=== PATIENT | male | born 1940 | race Caucasian/White ===

== ENCOUNTER 2017-11-28 05:14 | Inpatient (IN) | payer MEDICARE ==
[~2017-11-28] VITALS: Ht 177.8 cm; Wt 127.8 kg
[~2017-11-28 05:14] MED LIST: ACET-1600 PO; ASCO10004 PO; CALCIUM, MAG, ZINC PO; CHOL2000 PO; CLON2TAB2 PO; DIPH25CA61 PO; FINA5TAB4 PO; L.AC1CAP6 PO; LEVO150T5 PO; LOSA50TA6 PO; METF500T4 PO; METO-95 PO; MULT-717 PO; MULT-746 PO; OMEG1CAP34 PO; PRAV80TA2 PO; RIVA20TA PO; ST.150CA PO; STRONTIUM PO; TAMS0.4C2 PO; UBID100C24 PO; VIT1CAPS11 PO
[2017-11-28] MEDS ORDERED: VANCOMYCIN PER PHARMACY MC ONE (06:00)
[2017-11-28] MEDS ORDERED: CLINDAMYCIN 150 MG/ML, 6ML ONE (06:13)
[2017-11-28] MEDS ORDERED: cloniDINE/PF 100 MCG/ML, 10 ML ONE (06:13)
[2017-11-28] MEDS ORDERED: LIDOCAINE GEL 2%, 5ML ONE (06:18)
[2017-11-28] MEDS ORDERED: MIDAZOLAM 1 MG/ML, 2ML ONE (06:20)
[2017-11-28] MEDS ORDERED: FENTANYL PF 100 MCG/2ML ONE (06:20)
[2017-11-28] MEDS ORDERED: BUPIVACAINE/PF 0.5% ONE ×2 (06:22→07:43)
[2017-11-28] MEDS ORDERED: ASCO10004 PO (06:26)
[2017-11-28] MEDS ORDERED: TIZA4CAP PO (06:26)
[2017-11-28] MEDS ORDERED: LATA2.5D3 EACHEYE (06:26)
[2017-11-28] MEDS ORDERED: LEVO150T5 PO (06:26)
[2017-11-28] MEDS ORDERED: TAMS0.4C2 PO (06:26)
[2017-11-28] MEDS ORDERED: METO200T47 PO (06:26)
[2017-11-28] MEDS ORDERED: METF-688 PO (06:26)
[2017-11-28] MEDS ORDERED: LOSA50TA6 PO (06:26)
[2017-11-28] MEDS ORDERED: RIVA20TA PO (06:26)
[2017-11-28] MEDS ORDERED: LACT1CAP35 PO (06:26)
[2017-11-28] MEDS ORDERED: LACTATED RINGERS 1,000 ML IV SCH (06:26)
[2017-11-28] MEDS ORDERED: FINA5TAB4 PO (06:26)
[2017-11-28] MEDS ORDERED: [UNRECOGNIZED DRUG - REMARK] MC SCH (06:30)
[2017-11-28] MEDS: SODIUM CHLORIDE 0.9% 1,000 ML IV SCH ×2 (06:44→18:31)
[2017-11-28 06:56] LABS: ALANINE AMINOTRANSFERASE 39 U/L (12-78); ALBUMIN 3.8 g/dL (3.4-5.0); ANION GAP 8 mmol/L (5-15); CHLORIDE 104 mmol/L (98-107); CREATININE 1.38 mg/dL (0.7-1.3)
[2017-11-28 06:58] LABS: ALKALINE PHOSPHATASE 61 U/L (45-117); BILIRUBIN,TOTAL 0.6 mg/dL (0.2-1.0); TOTAL PROTEIN 7.6 g/dL (6.4-8.2)
[2017-11-28] MEDS ORDERED: MAGNESIUM HYDROXIDE 8%, 30ML UDC PO PRN (07:00)
[2017-11-28] MEDS ORDERED: VANCOMYCIN 2,000 MG in SODIUM CHLORIDE 0.9% 500 ML IV ONE (07:00)
[2017-11-28] MEDS ORDERED: SENNA/DOCUSATE TABLET PO PRN (07:00)
[2017-11-28] MEDS ORDERED: BISACODYL 10 MG SUPP PR PRN (07:00)
[2017-11-28] MEDS: OXYcodone/APAP 5/325MG TABLET PO SCH ×4 (07:00→23:03)
[2017-11-28] MEDS ORDERED: ONDANSETRON 2MG/ML, 2ML IV PRN (07:00)
[2017-11-28] MEDS ORDERED: FENTANYL PF 100 MCG/2ML IV PRN (07:30)
[2017-11-28] MEDS ORDERED: hydrALAzine 20 MG/ML, 1ML IV PRN (07:30)
[2017-11-28] MEDS ORDERED: HYDROmorphone 1 MG/ML, 1ML IV PRN (07:30)
[2017-11-28] MEDS ORDERED: PROMETHAZINE 25 MG/ML, 1ML IV PRN (07:30)
[2017-11-28] MEDS ORDERED: OXYcodone 5 MG/5 ML ORAL.SOL UDC PO PRN (07:30)
[2017-11-28] MEDS ORDERED: MIDAZOLAM 1 MG/ML, 2ML IV PRN (07:30)
[2017-11-28] MEDS ORDERED: ALBUTEROL/IPRATROPIUM 2.5MG/0.5MG, 3 ML NPPB PRN (07:30)
[2017-11-28] MEDS ORDERED: MEPERIDINE/PF 25MG/0.5ML IVPush PRN (07:30)
[2017-11-28] MEDS ORDERED: DIAZEPAM 5 MG/ML, 2ML IVPush PRN (07:30)
[2017-11-28] MEDS ORDERED: METOPROLOL 1 MG/ML, 5ML IV PRN (07:30)
[2017-11-28] MEDS ORDERED: ACETAMINOPHEN 325 MG TABLET PO PRN (07:30)
[2017-11-28] MEDS ORDERED: ONDANSETRON 2MG/ML, 2ML IVPush PRN (07:30)
[2017-11-28] MEDS ORDERED: SUCCINYLCHOLINE 20 MG/ML, 10ML ONE (07:43)
[2017-11-28] MEDS ORDERED: NEOSTIGMINE 1 MG/ML, 10ML ONE (07:43)
[2017-11-28] MEDS ORDERED: GLYCOPYRROLATE 0.2MG/1ML, 5ML ONE (07:43)
[2017-11-28] MEDS ORDERED: ROCURONIUM 10 MG/ML,10ML ONE (07:43)
[2017-11-28] MEDS ORDERED: LIDOCAINE-MPF 2% ,5ML ONE (07:43)
[2017-11-28] MEDS ORDERED: ONDANSETRON 2MG/ML, 2ML ONE (07:43)
[2017-11-28] MEDS ORDERED: CEFAZOLIN 1,000 MG ONE ×2 (07:43)
[2017-11-28] MEDS ORDERED: DEXAMETHASONE 4 MG/ML, 1ML ONE (07:43)
[2017-11-28] MEDS ORDERED: PROPOFOL 10 MG/ML, 20ML ONE (07:43)
[2017-11-28] MEDS ORDERED: EPHEDRINE 50 MG/ML, 1ML ONE ×2 (07:58)
[2017-11-28] MEDS ORDERED: PHENYLEPHRINE 10 MG/ML ONE (07:58)
[2017-11-28] MEDS: DOCUSATE 100 MG CAPSULE PO SCH ×2 (09:00→21:43)
[2017-11-28] MEDS ORDERED: ACETAMINOPHEN 650 MG/20.3 ML UDC ONE (09:35)
[2017-11-28] MEDS ORDERED: OXYcodone 5 MG/5 ML ORAL.SOL UDC ONE (09:35)
[2017-11-28] MEDS: LEVOTHYROXINE 150 MCG TABLET PO SCH (12:26)
[2017-11-28 13:45] VITALS: BP 154/91
[2017-11-28] MEDS: CEFAZOLIN PMX 2GM/50ML 50 ML IVPB SCH (18:33)
[2017-11-28] MEDS ORDERED: RIVAROXABAN 20 MG TABLET PO SCH (21:00)
[2017-11-28] MEDS ORDERED: LOSARTAN 50MG TABLET PO SCH (21:00)
[2017-11-28] MEDS ORDERED: LATANOPROST OPHTH 0.005%, 2.5ML EACHEYE SCH (21:00)
[2017-11-28] MEDS ORDERED: PRAVASTATIN SODIUM 80 MG PO SCH (21:00)
[2017-11-28] MEDS ORDERED: TIZANIDINE HCL 4 MG PO SCH (21:00)
[2017-11-28] MEDS ORDERED: FINASTERIDE 5 MG TABLET PO SCH (21:00)
[2017-11-28] MEDS ORDERED: TAMSULOSIN 0.4 MG CAP.ER.24H PO SCH (21:00)
[2017-11-28] MEDS ORDERED: METOPROLOL SUCCINATE 200 MG PO SCH (21:00)
[2017-11-28 21:27] VITALS: BP 127/75
[2017-11-28] MEDS: metFORMIN XR 500 MG TAB.ER.24H PO SCH (21:44)
[2017-11-28 23:46] VITALS: BP 128/75
[2017-11-29] MEDS: CEFAZOLIN PMX 2GM/50ML 50 ML IVPB SCH (02:19)
[2017-11-29] MEDS: SODIUM CHLORIDE 0.9% 1,000 ML IV SCH (02:44)
[2017-11-29 03:42] VITALS: BP 110/68
[2017-11-29] MEDS: OXYcodone/APAP 5/325MG TABLET PO SCH ×3 (04:10→10:38)
[2017-11-29 07:44] VITALS: BP 127/72
[2017-11-29] MEDS ORDERED: LEVOTHYROXINE 125 MCG TABLET ONE (07:59)
[2017-11-29] MEDS ORDERED: LEVOTHYROXINE 25 MCG TABLET ONE ×2 (07:59)
[2017-11-29] MEDS: DOCUSATE 100 MG CAPSULE PO SCH (08:02)
[2017-11-29] MEDS: metFORMIN XR 500 MG TAB.ER.24H PO SCH (08:02)
[2017-11-29] MEDS: LEVOTHYROXINE 150 MCG TABLET PO SCH (08:02)
[2017-11-29] MEDS ORDERED: SULF1TAB24 PO (12:41)
== END 2017-11-29 12:52 | disposition home or self-care (01) | DRG 483 ==
LOC: ORIP 05:14 → 4NOR 10:44 → DCLOUNGE 11-29 12:17
PROVIDERS: ADMIT Orthopaedic Surgery; ATTEND Orthopaedic Surgery
PROC: 0LS30ZZ Reposition Right Upper Arm Tendon, Open Approach (ICD-10-PCS; 2017-11-28)
PROC: 0RRJ00Z Replacement of Right Shoulder Joint with Reverse Ball and Socket Synthetic Substitute, Open Approach (ICD-10-PCS; principal; 2017-11-28 07:00)
DX: M19.011 Primary osteoarthritis, right shoulder (principal); I48.91 Unspecified atrial fibrillation; E11.9 Type 2 diabetes mellitus without complications; E03.9 Hypothyroidism, unspecified; I25.10 Atherosclerotic heart disease of native coronary artery without angina pectoris; M65.811 Other synovitis and tenosynovitis, right shoulder; M75.21 Bicipital tendinitis, right shoulder; Z96.612 Presence of left artificial shoulder joint; N40.0 Benign prostatic hyperplasia without lower urinary tract symptoms; I10 Essential (primary) hypertension; E78.00 Pure hypercholesterolemia, unspecified; Z95.5 Presence of coronary angioplasty implant and graft
CPT/HCPCS: 36415; 80053; 82962; 93005; C1713; C1776; J0690; J1100; J2250; J2405; J2704; J2710; J3010; J3370; J3490; C1769; J0330; J0735; J2370; J7030; J7040; J7120